=== PATIENT | female | born 1970 | race Caucasian/White ===

== ENCOUNTER → 2016-06-29 | Outpatient (CLI) | payer MEDICAID ==
--- NOTE | 2016-06-30 09:55 | RADIOLOGY REPORT PS360 ---
MRI-UP EXT ANY JNT W/O-LT HISTORY: Left shoulder pain with limited range of motion ROTATOR CUFF SYNDROME OF LEFT SHOULDER ORDERING PHYSICIAN: Jose Enrique Marley MD PATIENT AGE: 45 years COMPARISON: Radiograph of 06/22/2016 TECHNIQUE: Standard multiplanar multiecho sequences are performed without contrast. FINDINGS: There is a focal area of increased T2 signal involving the mid aspect of the supraspinatus tendon consistent with a partial tear involving the posterior aspect of the supraspinatus tendon.. There is mild narrowing of subacromial space at 5 mm. A complete tear with muscle and tendinous retraction is NOT identified. The glenoid jose are intact. The bicipital tendon is in place. The subscapularis and teres minor tendons have an unremarkable appearance. Small amount fluid is present in the subcoracoid bursa.. There is some hypertrophic change of the acromioclavicular joint with increased T2 signal suggesting some inflammation at this joint. IMPRESSION: 1. Partial tear of the posterior aspect of the supraspinatus tendon. A complete tear is not identified. 2. Mild inflammatory changes of the acromioclavicular joint. 3. Small subcoracoid bursa suggesting bursitis. IMPRESSION:
== END ==
LOC: RAD 15:59
DX: M75.102 Unspecified rotator cuff tear or rupture of left shoulder, not specified as traumatic (principal); M75.02 Adhesive capsulitis of left shoulder; M75.22 Bicipital tendinitis, left shoulder